=== PATIENT | female | born 1965 | race Caucasian/White ===

== ENCOUNTER → 2020-08-10 18:00 | Outpatient (BNVA) | payer OTHER, SELFPAY | PROVIDERS: Family Provider Registered Nurse; PCP Family Medicine; Visit Provider Family Medicine | DX: Z78.0 Asymptomatic menopausal state (principal); M62.838 Other muscle spasm; Z12.4 Encounter for screening for malignant neoplasm of cervix; L57.0 Actinic keratosis; Z12.39 Encounter for other screening for malignant neoplasm of breast; Z12.31 Encounter for screening mammogram for malignant neoplasm of breast; Z13.1 Encounter for screening for diabetes mellitus; Z13.220 Encounter for screening for lipoid disorders; Z13.6 Encounter for screening for cardiovascular disorders; Z68.29 Body mass index [BMI] 29.0-29.9, adult; Z86.39 Personal history of other endocrine, nutritional and metabolic disease | CPT/HCPCS: 88175 ==

== ENCOUNTER 2020-08-16 19:54 | Emergency (ER) | payer OTHER, SELFPAY ==
[2020-08-16 20:06] VITALS: BP 166/93; PULSE 104; RESP 14; TEMP 36.8; O2SAT 97; BMI 28.7
--- NOTE | 2020-08-16 20:18 | ECG_ITS ---
[facility] Test Date: 2020-08-16 Pat Name: Naheed Acosta Department: Room: Gender: Female Resident Medical Officer: TANIYA BRUSHB: 1965 Requested By: Rema Canales Order Number: [id number] Griselda MD: Leon Eller M.D. Measurements Intervals [place] Rate: 104 P: 64 KS: 150 QRS: 56 QRSD: 86 T: 64 QT: 326 QTc: 429 Interpretive Statements SINUS TACHYCARDIA POSSIBLE LEFT ATRIAL ENLARGEMENT [-0.1mV P WAVE IN V1/V2] POSSIBLE LEFT VENTRICULAR HYPERTROPHY [VOLTAGE CRITERIA PLUS LAE OR QRS WIDENING] MODERATE ST DEPRESSION [0.05+ mV ST DEPRESSION] No previous ECG available for comparison Electronically Signed On 08-17-2020 19:59:30 PRODUCE SPECIALIST by Leon Eller M.D. [id number]
--- NOTE | 2020-08-16 20:18 | XR_ITS ---
WS: [id number] PORTABLE CHEST HISTORY: cp COMPARISON: None available. Lungs are clear and well expanded. No pleural effusion or pneumothorax. Cardiac size: Normal. Mediastinum/Aorta: Normal mediastinum. No osseous abnormality seen. XR/XR chest 1V portable [id number] IMPRESSION: Unremarkable portable chest.
--- NOTE | 2020-08-16 20:41 | W.ED.CHESTPA ---
HPI - Chest Pain General: Chief Complaint: Chest Pain Stated Complaint: cp Time Seen by Provider: 08/16/20 20:17 Source: patient Mode of arrival: ambulatory Limitations: no limitations History of Present Illness: HPI narrative: 55-year-old female states patient has been having chest pain started roughly 2 hours ago. States pressure type pain in the center of her chest and radiates to her left arm and jaw. She had some nausea and shortness of breath with it. She has no history of cardiac issues. She denies any history of high blood pressure. Denies any worsening improving factors. MD complaint: chest pain Associated symptoms: Deny abdominal pain, dyspnea, fever(s), nausea or vomiting Review of Systems Const: Denies: fever(s), chills, body aches or change in appetite Eyes: Denies: blurry vision or eye discomfort ENMT: Denies: throat pain or dental pain Card: Reports: chest pain Resp: Denies: dyspnea GI: Denies: abdominal pain, nausea, vomiting or diarrhea : Denies: dysuria Musc: Denies: neck pain or back pain Skin/Breast: Denies: rash Neuro: Denies: headache(s) Psych: Denies: depression Giles/Lymph: Denies: easy bruising All/Imm: Denies: urticaria PFSH ED PFSH: Medical History Post-menopausal Surgical History H/O breast augmentation H/O tubal ligation History of right-sided carotid endarterectomy Social History Smoking and tobacco status: never smoked Alcohol intake: never Female Reproductive History: Spontaneous abortions: No Physical Exam Const: COMMON NORMALS: no acute distress, patient oriented x3 and healthy appearing HENMT: COMMON NORMALS: normocephalic and atraumatic HEAD & SCALP: normocephalic and atraumatic Eye: COMMON NORMALS: Equal, round and reactive pupils present and EOMs intact bilaterally PUPIL: Yes Equal, round and reactive pupils present Neck/C-Spine: COMMON NORMALS: full ROM and supple Chest: COMMONS NORMALS: normal inspection of the chest and normal palpation of entire chest wall Resp: COMMON NORMALS: normal respiratory effort, No retractions, No use of accessory muscles and clear to auscultation bilaterally AUSCULTATION: clear to auscultation bilaterally Cardio: COMMON NORMALS: regular rate, regular rhythm and No murmurs present (Cardio) RATE: regular rate RHYTHM: regular rhythm GI: COMMON NORMALS: Normal to inspection, nondistended, normoactive bowel sounds present, Soft to palpation, non-tender and no masses PALPATION: Yes Soft to palpation Extremity: COMMON NORMALS: normal to inspection and full ROM Neuro: COMMON NORMALS: patient oriented x3, moves all extremities and no focal motor deficits Psych: COMMON NORMALS: mental status grossly normal, Normal thought process present and cooperative THOUGHT PROCESS: Normal thought process present Skin: COMMON NORMALS: no rashes or lesions noted and no wounds GENERAL SKIN EXAM: no rashes or lesions noted Course Vital Signs: Vital signs: Vital Signs Temperature 98.2 F 08/16/20 22:33 Pulse Rate 90 08/16/20 22:33 Respiratory Rate 24 H 08/16/20 22:33 Blood Pressure 137/80 08/16/20 22:33 Pulse Oximetry 95 08/16/20 22:33 MDM - Chest Pain MDM Narrative: Medical decision making narrative: Tomorrow presents with chest pain. Her chest pain is since resolved. Her troponin here is negative. Patient was demanding to leave. I went and informed her that I would like to check a 2-hour troponin and her D-dimer is not back. She states she has to work tomorrow and refuses any more blood work and has to go home at this moment. I tried to talk her into staying and she refused. She is to return if she has pain. She is to follow-up with her PCP. She understands agrees to plan. Lab Data: Labs: Lab Results 08/16/20 08/16/20 08/16/20 Range/Units 20:29 20:29 20:29 WBC 6.5 (4.0-10.0) 10^3/ uL RBC 4.62 (4.1-5.3) 10^6/u L Hgb 14.9 (11.5-15.3) g/dL Hct 45.0 (37.0-47.0) % MCV 97.4 (81-99) fL MCH 32.3 (28.0-34.0) pg MCHC 33.1 (30.0-36.0) g/dL RDW 12.5 (12.1-15.1) % Plt Count 190 (130-400) 10^3/c mm MPV 12.5 H (7.4-10.4) fL Neut % (Auto) 56.9 % Lymph % (Auto) 31.0 % [place] % (Auto) 9.3 % Eos % (Auto) 1.4 % Baso % (Auto) 0.9 % Neut # (Auto) 3.68 (1.8-7.7) 10^3/u L Lymph # (Auto) 2.0 (0.8-4.8) 10^3/u L [place] # (Auto) 0.6 (0.2-0.9) 10^3/u L Eos # (Auto) 0.1 (0.0-0.8) 10^3/u L Baso # (Auto) 0.1 (0.0-0.1) 10^3/u L Nucleated RBC % (a uto) 0 % Nucleated RBCs # 0.0 /100WBC PT 12.30 (12.1-14.9) SECO NDS INR 0.89 (0.8-1.2) Sodium 142 (136-145) mmol/L Potassium 4.0 (3.5-5.1) mmol/L Chloride 105 (98-107) mmol/L Carbon Dioxide 25 (22-29) mmol/L Anion Gap 16.0 (5-19) BUN 10 (6-20) mg/dL Creatinine 0.6 (0.5-0.9) mg/dL GFR Calculation 104.2 (90-130) mL/min Glucose 106 (65-115) mg/dL Calculated Osmolal ity 293 (285-295) mOsm/k g Calcium 9.2 (8.5-10.5) mg/dL Total Bilirubin 0.2 (0.15-1.2) mg/dL AST 17 (0-32) U/L ALT 13 (0-33) U/L Alkaline Phosphata se 92 (35-105) IU/L Troponin T Baselin e (0-10) ng/L NT-Pro-B Natriuret Pep 29 (0-125) pg/mL Total Protein 6.3 L (6.6-8.7) g/dL Albumin 4.2 (3.5-5.2) g/dL Globulin 2.1 (1.3-4.6) g/dL Digoxin (0.6-1.2) ng/mL 08/16/20 08/16/20 Range/Units 20:29 20:38 WBC (4.0-10.0) 10^3/ uL RBC (4.1-5.3) 10^6/u L Hgb (11.5-15.3) g/dL Hct (37.0-47.0) % MCV (81-99) fL MCH (28.0-34.0) pg MCHC (30.0-36.0) g/dL RDW (12.1-15.1) % Plt Count (130-400) 10^3/c mm MPV (7.4-10.4) fL Neut % (Auto) % Lymph % (Auto) % [place] % (Auto) % Eos % (Auto) % Baso % (Auto) % Neut # (Auto) (1.8-7.7) 10^3/u L Lymph # (Auto) (0.8-4.8) 10^3/u L [place] # (Auto) (0.2-0.9) 10^3/u L Eos # (Auto) (0.0-0.8) 10^3/u L Baso # (Auto) (0.0-0.1) 10^3/u L Nucleated RBC % (a uto) % Nucleated RBCs # /100WBC PT (12.1-14.9) SECO NDS INR (0.8-1.2) Sodium (136-145) mmol/L Potassium (3.5-5.1) mmol/L Chloride (98-107) mmol/L Carbon Dioxide (22-29) mmol/L Anion Gap (5-19) BUN (6-20) mg/dL Creatinine (0.5-0.9) mg/dL GFR Calculation (90-130) mL/min Glucose (65-115) mg/dL Calculated Osmolal ity (285-295) mOsm/k g Calcium (8.5-10.5) mg/dL Total Bilirubin (0.15-1.2) mg/dL AST (0-32) U/L ALT (0-33) U/L Alkaline Phosphata se (35-105) IU/L Troponin T Baselin e 6 (0-10) ng/L NT-Pro-B Natriuret Pep (0-125) pg/mL Total Protein (6.6-8.7) g/dL Albumin (3.5-5.2) g/dL Globulin (1.3-4.6) g/dL Digoxin 0.3 L (0.6-1.2) ng/mL Imaging Data^: CXR: Attestation: I personally reviewed and interpreted this imaging study as follows: My impression: no acute abnormality EKG Data^: EKG 1: Attestation: I personally reviewed and interpreted this EKG as follows: EKG interpretation date: 08/16/20 EKG interpretation time: 20:02 Interpretation: sinus tach hr [address] or t wave abnormalities qrs 86 qtc 386 Discharge Plan Discharge Patient Disposition: Home Clinical Impression: Chest pain Qualifiers: Chest pain type: unspecified Qualified Code(s): R07.9 - Chest pain, unspecified Condition: Stable Prescriptions: No Action Zyrtec 10 mg Tablet 10 mg PO DAILY@1999 RF: 0 Aspir-81 81 mg Tablet,Delayed Release (Dr/Ec) 81 mg PO DAILY@1999 RF: 0 Prilosec OTC 20 mg Tablet,Delayed Release (Dr/Ec) 20 mg PO DAILY@1999 RF: 0 cyclobenzaprine 10 mg tablet 10 mg PO TID PRN (Reason: muscle spasm) RF: 0 medroxyprogesterone 2.5 mg tablet 2.5 mg PO DAILY@1999 RF: 0 estradiol 1 mg tablet 1 mg PO DAILY@1999 RF: 0 Discharge Orders: Discharge ED (Routine); Ordered 08/16/20 Ordered By: Rema Canales Discharge Diet: Advance as tolerated Discharge Activity: Resume usual activity Patient Instructions: Chest Pain (ED) Coding Level of Care Code ED Passenger Car Conductor for Chg Fwd Exam Comprehensive
[2020-08-16 20:43] LABS: Basophils # 0.1 10^3/uL (0.0-0.1); Basophils % 0.9 %; Eosinophils # 0.1 10^3/uL (0.0-0.8); Eosinophils % 1.4 %; Hemoglobin 14.9 g/dL (11.5-15.3); Mean Corpuscular HGB Conc 33.1 g/dL (30.0-36.0); Mean Corpuscular Hemoglobin 32.3 pg (28.0-34.0); Mean Corpuscular Volume 97.4 fL (81-99); Mean Platelet Volume 12.5 fL (7.4-10.4); Monocytes # 0.6 10^3/uL (0.2-0.9); Monocytes % 9.3 %; Neutrophils # 3.68 10^3/uL (1.8-7.7); Neutrophils % 56.9 %; Nucleated Red Blood Cells % 0 %; Platelet Count 190 10^3/cmm (130-400); Red Blood Count 4.62 10^6/uL (4.1-5.3); Red Cell Distribution Width 12.5 % (12.1-15.1); White Blood Count 6.5 10^3/uL (4.0-10.0)
[2020-08-16] MEDS: aspirin 81 mg Chew Tablet 324 MG PO (20:49)
[2020-08-16] MEDS: nitroglycerin 0.4 mg sublingual Tablet SUBLINGUAL (20:49)
[2020-08-16 21:08] LABS: INR 0.89 (0.8-1.2)
[2020-08-16 21:30] LABS: Digoxin 0.3 ng/mL (0.6-1.2)
[2020-08-16 21:34] LABS: Troponin(5th) Baseline 6 ng/L (0-10)
[2020-08-16 21:42] LABS: Alanine Aminotransferase 13 U/L (0-33); Albumin Level 4.2 g/dL (3.5-5.2); Alkaline Phosphatase 92 IU/L (35-105); Aspartate Amino Transferase 17 U/L (0-32); Blood Urea Nitrogen 10 mg/dL (6-20); Calcium 9.2 mg/dL (8.5-10.5); Carbon Dioxide 25 mmol/L (22-29); Chloride 105 mmol/L (98-107); Globulin 2.1 g/dL (1.3-4.6); Glomerular Filtration Rate 104.2 mL/min (90-130); Glucose 106 mg/dL (65-115); NT Pro B Type Natriuretic Pept 29 pg/mL (0-125); Osmolality Calculated 293 mOsm/kg (285-295); Sodium 142 mmol/L (136-145); Total Bilirubin 0.2 mg/dL (0.15-1.2); Total Protein 6.3 g/dL (6.6-8.7)
[2020-08-16 22:06] VITALS: BP 138/83; PULSE 90; RESP 25; O2SAT 96
[2020-08-16 22:33] VITALS: BP 137/80; PULSE 90; RESP 24; TEMP 36.8; O2SAT 95
[2020-08-16 23:49] LABS: D Dimer <= 0.27 ug/mIFEU (0-0.59)
== END 2020-08-16 22:33 | disposition home or self-care (01) ==
PROVIDERS: Emergency Provider Emergency Medicine
DX: R07.9 Chest pain, unspecified (principal); Z79.82 Long term (current) use of aspirin
CPT/HCPCS: 12345; 71045; 80053; 80162; 83880; 84484; 85025; 85378; 85610; 93005; 99283; 99284

== ENCOUNTER 2020-10-04 10:04 | Outpatient (CLI) | payer SELFPAY ==
[2020-10-04 10:57] LABS: Thyroid Stimulating Hormone 1.39 uIU/mL (0.27-4.20)
== END 2020-10-04 10:05 | disposition home or self-care (01) ==
LOC: LAB 10:08
PROVIDERS: PCP Family Medicine; Visit Provider Dermatology
DX: Z01.89 Encounter for other specified special examinations (principal)
CPT/HCPCS: 84443

== ENCOUNTER 2020-11-08 08:18 | Outpatient (CLI) | payer OTHER, SELFPAY ==
--- NOTE | 2020-11-08 08:29 | MM_ITS ---
WS: [id number] Exam: [id number] Date/Time of Exam: 11/08/2020 8:34 AM Reason For Exam: SCREENING VIEWS: MLO and CC views both breasts. Also breast implant displacement MLO and CC views both breasts . Comparison made with prior exam of 11/18/2014, 12/06/2015, 12/06/2016 and 12/12/2017.. Findings: There was no sign of mass, architectural distortion or suspicious calcification in either breast. Sc attered fibroglandular densities MM/[id number] Impression: BI-RADS: 2-Benign FOLLOW-UP: 1 Year Follow-up This mammogram was also analyzed by the Computer Aided Detection System R2 Imag e Zigzag Tunnel Elastic Operator.
== END 2020-11-08 08:19 | disposition home or self-care (01) ==
LOC: RADSHAW 08:19
PROVIDERS: PCP Family Medicine; Visit Provider Family Medicine
DX: Z12.31 Encounter for screening mammogram for malignant neoplasm of breast (principal)
CPT/HCPCS: 77067

== ENCOUNTER 2020-12-29 06:46 | Outpatient (CLI) | payer OTHER, SELFPAY ==
--- NOTE | 2020-12-29 07:28 | USCV_ITS ---
Naheed Acosta Age: 55 Gender: F : 1965 Exam Date: 12/29/2020 07:38 Ordering Phys: bIeth Hanson MD ([email or web address]) Technologist: Beverley Godoy Exam Location: [facility] [place] Indication: Tachycardia BP: 100 / 65 HR: 69 Rhythm: Sinus Technical Quality: Fair MEASUREMENTS (Male / Female) Normal Values 2D ECHO LV Diastolic Diameter PLAX 4.6 cm 4.2 - 5.9 / 3.9 - 5.3 cm LV Systolic Diameter PLAX 3.3 cm LV Chamber Size 4.2 cm IVS Diastolic Thickness 1.3 cm 0.6 - 1.0 / 0.6 - 0.9 cm IVS Systolic Thickness 1.3 cm LVPW Diastolic Thickness 1.3 cm 0.6 - 1.0 / 0.6 - 0.9 cm LVPW Systolic Thickness 1.8 cm RV Chamber Size 2.9 cm LVOT Diameter 2.0 cm LV Ejection Fraction 2D Teich 54.4 % LV Ejection Fraction MOD 2C 57.8 % LV Ejection Fraction 2C AL 60.2 % LA Diameter 2.8 cm LA Width 2.5 cm LA Height 4.6 cm RA Width 2.9 cm RA Height 4.1 cm Aorta at Sinotubular Diameter 2.4 cm M-MODE LV Diastolic Diameter MM 6.1 cm 4.2 - 5.9 / 3.9 - 5.3 cm LV Systolic Diameter MM 4.2 cm LV Ejection Fraction MM Teich 59.0 % IVS Diastolic Thickness MM 0.7 cm 0.6 - 1.0 / 0.6 - 0.9 cm IVS Systolic Thickness MM 1.1 cm LVPW Diastolic Thickness MM 1.1 cm 0.6 - 1.0 / 0.6 - 0.9 cm LVPW Systolic Thickness MM 1.3 cm RV Diastolic Diameter MM 0.6 cm Aortic Annulus Diameter 3.0 cm LA Ao Ratio MM 1.2 MV E Point Septal Separation 0.6 cm DOPPLER AV Peak Velocity 127.0 cm/s LVOT Peak Velocity 100.0 cm/s AV Area Cont Eq vti 2.6 cm squared AV Area Cont Eq pk 2.4 cm squared MV Area PHT 3.1 cm squared Mitral E to A Ratio 0.8 MV E' Velocity 39.0 cm/s Mitral E to MV E' Ratio 4.6 Mitral E to LV E' Lateral Ratio 4.5 Mitral E to LV E' Septal Ratio 4.9 TR Peak Velocity 141.0 cm/s TR Peak Gradient 8.0 mmHg TV Peak E Velocity 40.0 cm/s Right Atrial Pressure 3.0 mmHg Pulmonary Artery Systolic Pressu 11.0 mmHg PV Peak Velocity 77.0 cm/s RV Acceleration Time 0.1 s RV Ejection Time 0.3 s RV AcT/ET 0.4 FINDINGS Left Ventricle Normal left ventricular size, systolic function and wall thickness, with no regional wall motion abnormalities. Left ventricular ejection fraction is estimated at 60 %. Normal diastolic function. Right Ventricle Normal right ventricular size and systolic function. Right ventricular systolic pressure 11 mmHg. Right Atrium Normal right atrial size. Left Atrium Normal left atrial size. Mitral Valve Structurally normal mitral valve. No mitral valve stenosis. No mitral valve regurgitation. Aortic Valve Structurally normal trileaflet aortic valve. No aortic valve stenosis. No aortic valve regurgitation. Tricuspid Valve Structurally normal tricuspid valve. Trace to mild tricuspid valve regurgitation. Pulmonic Valve Pulmonic valve not well visualized. No pulmonary valve stenosis. Trace pulmonary valve regurgitation. Pericardium No pericardial effusion. Aorta Normal size aortic root. CONCLUSIONS 1. Normal left ventricular size, systolic function and wall thickness, with no regional wall motion abnormalities. Left ventricular ejection fraction is estimated at 60 %. Normal diastolic function. 2. Normal right ventricular size and systolic function. 3. No significant valvular abnormality. 4. No pericardial effusion. 5. No prior similar studies to compare. Ibeth Hanson MD (Electronically Signed) Final Date: 01 January 2021 14:26 S
== END 2020-12-29 06:47 | disposition home or self-care (01) ==
PROVIDERS: PCP Family Medicine; Visit Provider Internal Medicine Cardiovascular Disease
DX: R00.0 Tachycardia, unspecified (principal)
CPT/HCPCS: 93306

== ENCOUNTER 2020-12-31 23:19 | Emergency (ER) | payer OTHER, SELFPAY ==
[2020-12-31 23:36] VITALS: BP 145/75; PULSE 75; RESP 16; TEMP 36.9; O2SAT 96; BMI 30.1
--- NOTE | 2020-12-31 23:55 | XRR_ITS ---
PROCEDURE INFORMATION: Exam: XR Chest Exam date and time: 12/31/2020 11:55 PM Age: 55 years old Clinical indication: Sternal or substernal pain; Additional info: Cp TECHNIQUE: Imaging protocol: XR of the chest. Views: 1 view. COMPARISON: CR XR chest 1V portable [id number] 08/16/2020 8:26 PM FINDINGS: Lungs: Mild left basilar pneumonia. Pleural spaces: Unremarkable. No pleural effusion. No pneumothorax. Heart/Mediastinum: Unremarkable. No cardiomegaly. Bones/joints: Unremarkable. XR/XR chest 1V portable [id number] IMPRESSION: Mild left basilar pneumonia.
[2021-01-01 00:11] VITALS: BP 118/74; PULSE 72; RESP 22; O2SAT 93
[2021-01-01 00:41] VITALS: BP 115/61; PULSE 71; RESP 22; O2SAT 96
[2021-01-01 00:45] LABS: Basophils # 0.1 10^3/uL (0.0-0.1); Basophils % 0.8 %; Eosinophils % 0.5 %; Hematocrit 42.5 % (37.0-47.0); Hemoglobin 14.1 g/dL (11.5-15.3); Lymphocytes # 1.6 10^3/uL (0.8-4.8); Lymphocytes % 22.4 %; Mean Corpuscular HGB Conc 33.2 g/dL (30.0-36.0); Mean Corpuscular Hemoglobin 31.3 pg (28.0-34.0); Mean Corpuscular Volume 94.4 fL (81-99); Mean Platelet Volume 12.3 fL (7.4-10.4); Monocytes # 0.7 10^3/uL (0.2-0.9); Monocytes % 8.9 %; Neutrophils # 4.87 10^3/uL (1.8-7.7); Nucleated Red Blood Cells % 0 %; Platelet Count 195 10^3/cmm (130-400); White Blood Count 7.3 10^3/uL (4.0-10.0)
[2021-01-01 01:09] LABS: Troponin(5th) Baseline 7 ng/L (0-10)
[2021-01-01 01:11] VITALS: BP 113/82; RESP 69; O2SAT 95
[2021-01-01 01:16] LABS: Alanine Aminotransferase 9 U/L (0-33); Alkaline Phosphatase 63 IU/L (35-105); Aspartate Amino Transferase 10 U/L (0-32); Blood Urea Nitrogen 16 mg/dL (6-20); Calcium 8.8 mg/dL (8.5-10.5); Carbon Dioxide 23 mmol/L (22-29); Chloride 108 mmol/L (98-107); Creatine Phosphokinase 35 U/L (26-192); Globulin 1.9 g/dL (1.3-4.6); Glomerular Filtration Rate 128.6 mL/min (90-130); Glucose 98 mg/dL (65-115); NT Pro B Type Natriuretic Pept 96 pg/mL (0-125); Osmolality Calculated 295 mOsm/kg (285-295); Sodium 142 mmol/L (136-145); Total Bilirubin 0.2 mg/dL (0.15-1.2); Total Protein 5.9 g/dL (6.6-8.7)
[2021-01-01 01:41] VITALS: BP 119/75; PULSE 77; RESP 15; O2SAT 96
[2021-01-01] MEDS: ketorolac 30 mg/mL INJ IVP (01:55)
--- NOTE | 2021-01-01 01:55 | ECG_ITS ---
[facility] Test Date: 2021-01-01 Pat Name: Naheed Acosta Department: Room: Gender: Female Manager Center: : 1965 Requested By: Osbaldo Berg Order Number: [id number] Griselda MD: Leon Eller M.D. Measurements Intervals [place] Rate: 65 P: 59 MT: 153 QRS: 56 QRSD: 90 T: 54 QT: 403 QTc: 419 Interpretive Statements SINUS RHYTHM Compared to ECG 08/16/2020 20:02:42 Sinus tachycardia no longer present ST (T wave) deviation no longer present Electronically Signed On 01-01-2021 19:16:24 CDT by Leon Eller M.D. [id number]
[2021-01-01 02:28] VITALS: BP 143/87; PULSE 73; RESP 18; O2SAT 98
--- NOTE | 2021-01-01 02:43 | ED_ITS ---
HPI - Arrhythmia/Palpitations General: Chief Complaint: Arrhythmia/Palpitations Stated Complaint: CP, NAUSEATED Time Seen by Provider: 12/31/20 23:49 History of Present Illness: HPI narrative: 55-year-old female presents with chest discomfort and palpitations. She has had these symptoms before. She has had a Holter monitor, and sustained 2 short runs of ventricular tachycardia that were nonsustained during her Holter monitor. She also has had a history of several symptomatic episodes of PVCs. She states that she has had more of these tonight, with chest discomfort not resolved by nitroglycerin and aspirin at home. She later noted that she had been coughing, nonproductive MD complaint: rapid heart beat, heart racing and palpitations Onset (ago): hour(s) Duration: intermittent Severity: moderate Context: occurred during rest and occurred during exertion Arrhythmia history: other Associated symptoms: Reports cough, nausea, sense of impending doom and short of breath; Deny anxiety, diaphoresis, paresthesias, syncope or vomiting Review of Systems Const: Denies: diaphoresis Eyes: Denies: change in vision ENMT: Denies: odynophagia or sinus pain Card: Denies: syncope Resp: Reports: dyspnea and non-productive cough; Denies: productive cough or wheezing GI: Reports: nausea; Denies: vomiting : Denies: dysuria or hematuria Musc: Denies: joint redness Skin/Breast: Denies: rash or erythema Neuro: Reports: dizziness; Denies: headache(s) or seizure-like activity Psych: Denies: anxiety PFSH ED PFSH: Medical History Post-menopausal Surgical History H/O breast augmentation H/O tubal ligation History of right-sided carotid endarterectomy Social History Smoking and tobacco status: never smoked Alcohol intake: never Female Reproductive History: Spontaneous abortions: No Physical Exam Const: GENERAL APPEARANCE: well developed ORIENTATION/CONSCIOUSNESS: Yes oriented to person, Yes oriented to place and Yes oriented to time HENMT: COMMON NORMALS: normocephalic and Normal external nose present HEAD & SCALP: normocephalic FACE & SINUS: normal facial exam NOSE: Normal external nose present and No nasal discharge present Eye: COMMON NORMALS: Equal, round and reactive pupils present, EOMs intact bilaterally and conjunctivae normal EYELID: eyelids normal CONJUNCTIVA: Yes conjunctivae normal PUPIL: Yes Equal, round and reactive pupils present Neck/C-Spine: GENERAL: No tracheal deviation CERVICAL SPINE: Yes normal cervical lordosis and No Cervical spine tenderness Chest: COMMONS NORMALS: normal inspection of the chest CHEST: No tenderness Resp: COMMON NORMALS: clear to auscultation bilaterally EFFORT & INSPECTION: No tachypneic, No respiratory distress, No retractions, No uses accessory muscles and No tracheal deviation AUSCULTATION: clear to auscultation bilaterally, no rhonchi, no wheezes and lung sounds not diminished Cardio: COMMON NORMALS: regular rate and regular rhythm RATE: regular rate RHYTHM: regular rhythm HEART SOUNDS: no murmurs PERIPHERAL PULSES: radial pulses present GI: INSPECTION: No abdominal distension AUSCULTATION: No Hyperactive bowel sounds present and No Hypoactive bowel sounds present PALPATION: No Guarding due to palpation present (GI) and No Rigid due to palpation PERCUSSION: no dullness to percussion and no tympanic to percussion Neuro: SENSORIUM/ORIENTATION: Yes oriented to person, Yes oriented to place and Yes oriented to time Psych: COMMON NORMALS: mental status grossly normal Skin: COMMON NORMALS: no rashes or lesions noted GENERAL SKIN EXAM: no rashes or lesions noted Course Vital Signs: Vital signs: Vital Signs Temperature 98.4 F 12/31/20 23:36 Pulse Rate 73 01/01/21 02:28 Respiratory Rate 18 01/01/21 02:28 Blood Pressure 143/87 01/01/21 02:28 Pulse Oximetry 98 01/01/21 02:28 MDM - Arrhythmia/Palpitations MDM Narrative: Medical decision making narrative: 55-year-old female with chest discomfort and palpitations. Her EKG shows normal sinus rhythm without any acute ST changes. There is a normal axis. Her troponin is 6. Other laboratory including magnesium is normal. Chest x-ray shows a left basilar pne umonia, mild, but could be a cause of her symptoms. We will go ahead and treat her. She does state that she has been coughing. She will be swabbed for COVID- 19 as well. Lab Data: Labs: Lab Results 01/01/21 01/01/21 01/01/21 Range/Units 00:15 00:15 00:15 WBC 7.3 (4.0-10.0) 10^3/ uL RBC 4.50 (4.1-5.3) 10^6/u L Hgb 14.1 (11.5-15.3) g/dL Hct 42.5 (37.0-47.0) % MCV 94.4 (81-99) fL MCH 31.3 (28.0-34.0) pg MCHC 33.2 (30.0-36.0) g/dL RDW 12.0 L (12.1-15.1) % Plt Count 195 (130-400) 10^3/c mm MPV 12.3 H (7.4-10.4) fL Neut % (Auto) 67.0 % Lymph % (Auto) 22.4 % Stanton % (Auto) 8.9 % Eos % (Auto) 0.5 % Baso % (Auto) 0.8 % Neut # (Auto) 4.87 (1.8-7.7) 10^3/u L Lymph # (Auto) 1.6 (0.8-4.8) 10^3/u L Stanton # (Auto) 0.7 (0.2-0.9) 10^3/u L Eos # (Auto) 0.0 (0.0-0.8) 10^3/u L Baso # (Auto) 0.1 (0.0-0.1) 10^3/u L Nucleated RBC % (a uto) 0 % Nucleated RBCs # 0.0 /100WBC Sodium 142 (136-145) mmol/L Potassium 4.0 (3.5-5.1) mmol/L Chloride 108 H (98-107) mmol/L Carbon Dioxide 23 (22-29) mmol/L Anion Gap 15.0 (5-19) BUN 16 (6-20) mg/dL Creatinine 0.5 (0.5-0.9) mg/dL GFR Calculation 128.6 (90-130) mL/min Glucose 98 (65-115) mg/dL Calculated Osmolal ity 295 (285-295) mOsm/k g Calcium 8.8 (8.5-10.5) mg/dL Magnesium 2.0 (1.7-2.3) mg/dL Total Bilirubin 0.2 (0.15-1.2) mg/dL AST 10 (0-32) U/L ALT 9 (0-33) U/L Alkaline Phosphata se 63 (35-105) IU/L Creatine Kinase 35 (26-192) U/L Troponin T Baselin e 7 (0-10) ng/L NT-Pro-B Natriuret Pep 96 (0-125) pg/mL Total Protein 5.9 L (6.6-8.7) g/dL Albumin 4.0 (3.5-5.2) g/dL Globulin 1.9 (1.3-4.6) g/dL Discharge Plan Discharge Patient Disposition: Home Clinical Impression: Chest pain Qualifiers: Chest pain type: unspecified Qualified Code(s): R07.9 - Chest pain, unspecified Pneumonia Qualifiers: Pneumonia type: due to unspecified organism Laterality: left Lung location: lower lobe of lung Qualified Code(s): J18.9 - Pneumonia, unspecified organism Condition: Stable Prescriptions: New doxycycline hyclate 100 mg capsule 100 mg PO BID 7 Days Qty: 14 RF: 0 No Action nitroglycerin 0.4 mg tablet, sublingual 0.4 mg sublingual Q5M PRN (Reason: chest pain) Qty: 25 RF: 0 metoprolol succinate 25 mg tablet extended release 24 hr 25 mg PO DAILY Qty: 90 RF: 1 Aspir-81 81 mg Tablet,Delayed Release (Dr/Ec) 81 mg PO DAILY@1999 RF: 0 cyclobenzaprine 10 mg tablet 10 mg PO TID PRN (Reason: muscle spasm) RF: 0 medroxyprogesterone 2.5 mg tablet 2.5 mg PO DAILY@1999 RF: 0 estradiol 1 mg tablet 1 mg PO DAILY@1999 RF: 0 Discharge Orders: Discharge ED (Routine); Ordered 01/01/21 Ordered By: Osbaldo Duff Referrals: Angelita Ayala MD [Primary Care Provider] - 4-7 days Discharge Diet: Advance as tolerated Discharge Activity: Increase activity as tolerated Activity Restrictions/Additional Instructions: Return for worsening pain despite treatment, syncope or passing out, worsening palpitations or racing heart, any other concerning symptoms. You should stay at home until you hear back from your Covid test to be safe. Coding Level of Care Code ED Rubber Boots And Shoes Repairer for Deyvi Rodas
[2021-01-03 01:18] LABS: Quest SARS-CoV-2 RNA NOT DETECTED (NOT DETECTED)
--- NOTE | 2021-01-03 08:52 | PC.NURSE ---
PT CALLED AND GIVEN THE RESULTS OF HER COVID TEST
== END 2021-01-01 02:20 | disposition home or self-care (01) ==
PROVIDERS: Emergency Provider Emergency Medicine; PCP Family Medicine
DX: R07.9 Chest pain, unspecified (principal); J18.9 Pneumonia, unspecified organism; Z79.82 Long term (current) use of aspirin; Z20.822 Contact with and (suspected) exposure to COVID-19
CPT/HCPCS: 71045; 80053; 82550; 83735; 83880; 84484; 85025; 87635; 93005; 96374; 99284; J1885

== ENCOUNTER → 2021-02-01 08:37 | Outpatient (BNVA) | payer OTHER, SELFPAY | PROVIDERS: PCP Family Medicine; Visit Provider Family Medicine | DX: Z20.828 Contact with and (suspected) exposure to other viral communicable diseases (principal) | CPT/HCPCS: 87635 ==

== ENCOUNTER 2021-04-19 10:49 | Outpatient (CLI) | payer OTHER, SELFPAY ==
--- NOTE | 2021-04-19 11:00 | USCV_ITS ---
Naheed Acosta Age: 56 Gender: F : 1965 Exam Date: 04/19/2021 11:09 Ordering Phys: Ibeth Hanson MD ([email or web address]) Technologist: Elvira Cook Exam Location: [facility] – [place] Indication: carotid stenosis, s/p rt endarterectomy Risk Factors: none Previous Vascular Surgery: R CEA Right Brachial BP: / Left Brachial BP: / Right Left Velocity (cm/s) Spectral Plaque Velocity (cm/s) Spectral Plaque Syst/Diast Broadening Syst/Diast Broadening 77.20/ 22.10 Prox CCA 72.80 / 25.40 46.30/ 14.30 Mid CCA 49.60 / 17.10 30.90/ 7.20 Distal CCA 64.10 / 22.20 Homo 73.90/ 27.60 Prox ICA 62.40 / 26.50 Homo 81.60/ 37.50 Mid ICA 74.30 / 26.50 101.40/46.30 Distal ICA 95.90 / 38.60 94.80 ECA 69.20 1.31 ICA/CCA 1.32 Antegrade Vertebral Antegrade 48.20/ 14.00 cm/s 48.50/ 17.60 cm/s Tri Subclavian Tri 64.70 131.5 0 FINDINGS Mild to moderate plaques bilaterally at the bifurcations Intimal thickening in the common carotid arteries bilaterally. Antegrade flow in the vertebral arteries bilaterally Normal Doppler flow velocities in the external carotid, vertebral and subclavian arteries bilaterally CONCLUSIONS Mild to moderate plaques bilaterally at the bifurcations with Doppler features consistent with less than 50% stenosis. No significant stenosis in the vertebral, subclavian and external carotid arteries bilaterally. Dr Leon Eller MD [facility] (Electronically Signed) Final Date: 19 April 2021 23:58 S
== END 2021-04-19 10:50 | disposition home or self-care (01) ==
LOC: RAD 10:51
PROVIDERS: PCP Family Medicine; Visit Provider Internal Medicine Cardiovascular Disease
DX: I65.23 Occlusion and stenosis of bilateral carotid arteries (principal)
CPT/HCPCS: 93880

== ENCOUNTER 2021-07-03 09:01 | Outpatient (CLI) | payer OTHER, SELFPAY ==
[2021-07-03 09:07] VITALS: BMI 30.1
--- NOTE | 2021-07-03 09:19 | ECG_ITS ---
[facility] Test Date: 2021-07-03 Pat Name: Naheed Acosta Department: Room: Gender: Female Software Applications Specialist: Juliane Elmore : 1965 Requested By: Ibeth Hanson Order Number: [id number] Villalobos MD: Ibeth Hanson M.D. Interpretive Statements NAME OF STUDY: EXERCISE SESTAMIBI STRESS TEST INDICATION: Exertional dyspnea, NSVT Baseline blood pressure of 150/86 mm Hg, heart rate of 73 beats per minute and oxygen saturation of 94%. EKG showed sinus rhythm, normal axis with with nonspecific ST depression. The patient exercised for 6 minutes and 4 seconds on a standard Luis protocol. Patient attained a maximum heart rate of 154 beats per minute(93% of the maximum predicted heart rate) with a blood pressure at the peak exercise of 183/93 mm Hg and oxygen saturation of 97%. The EKG at the peak exercise revealed sinus tachycardia with no significant ST-T wave changes. Patient did not have any chest pain or any significant arrhythmis with the exercise. Isolated PVCs and PACs noted with exercise and during recovery. Study was terminated due to exertional fatigue and shortness of breath. During the recovery phase, there were no new changes. Blood pressure at the end of the recovery phase was 157/84 mm Hg with a heart rate of 95 beats per minute and oxygen saturation of 95%. CONCLUSION: 1. Normal EKG response to treadmill exercise. 2. No exercise-induced chest pain or cardiac arrhythmia. 3. Good exercise tolerance, attained a maximum of 7 METs. Maximum VO2 of 24.5 mL/kg/min. 4. Baseline hypertension with normal response to exercise. 5. Perfusion scan will be documented separately. Electronically Signed On 07-06-2021 18:10:10 SERVICE OBSERVER CHIEF by Ibeth Hanson M.D. [id number]
--- NOTE | 2021-07-03 09:20 | NMCV_ITS ---
NM radha perf SPECT r/s* [id number] Naheed Acosta Age: 56 Gender: F : 1965 Exam Date: 07/03/2021 10:18 Ordering Phys: Ibeth Hanson MD ([email or web address]) Technologist: ATIF Yu Exam Location: [facility] Indications: Exertional dyspnea, NSVT STRESS TEST Please [facility] IMAGE PROTOCOL Rest/Stress 1 Exercise Day Radiopharmaceutical Dose (mCi) Administration Site Administered by Rest: Tc-99m 10.9 IV ATIF Yu Sestamibi Stress:Tc-99m 32.3 IV ATIF Yu Sestamibi Rest: 03-Jul-2021 60 Discovery 630 Stress: 03-Jul-2021 30 Discovery 630 Images obtained in supine and prone position. Radiopharmaceutical was injected at 90 % maximum heart rate. SPECT RESULTS Technical Quality: Excellent Raw Data Analysis: Normal Image Corrections: No attenuation or motion correction applied Summed Stress Score: 0 Summed Rest Score: 3 Summed Difference Score: 0 PERFUSION FINDINGS Small size perfusion abnormality of mild severity of apical inferior and apical lateral wall on rest images with somewhat improved tracer uptake in stress images. FUNCTIONAL RESULTS (calculated via Gated SPECT) Stress Image LV EF (%): 72 Stress EDV (mL):79 TID: 0.85 Stress ESV (mL):22 FUNCTIONAL FINDINGS: The left ventricle is normal in size. Transient Ischemia Dilatation of 0.85. There is normal left ventricular systolic function. The left ventricular ejection fraction is normal with a value of 72%. There is normal left ventricular wall thickening with no regional wall motion abnormality. Normal end-diastolic end-systolic volumes. IMPRESSIONS 1. Small sized perfusion abnormality of mild severity of apical inferior and apical lateral arnold. 2. This may represent attenuation artifact or old myocardial infarction in apical arnold. 3. Overall left ventricular systolic function is normal without regional wall motion abnormalities, LVEF=72%. 4. Normal EKG response to treadmill exercise. Please refer to separate report for details. 5. No coronary ischemia based on the study. Ibeth Hanson MD (Electronically Signed) Final Date: 06 July 2021 18:25 S
[2021-07-03 11:45] VITALS: BP 157/84; PULSE 96
== END 2021-07-03 09:02 | disposition home or self-care (01) ==
LOC: CDL 09:02
PROVIDERS: PCP Family Medicine; Visit Provider Internal Medicine Cardiovascular Disease
DX: I47.2 Ventricular tachycardia (principal); R06.09 Other forms of dyspnea; R53.83 Other fatigue; R06.02 Shortness of breath
CPT/HCPCS: 78452; 93017; A9500

== ENCOUNTER 2022-03-27 09:01 | Outpatient (CLI) | payer SELFPAY ==
[2022-03-27 09:18] LABS: HF Add Manual Diff No
[2022-03-27 09:20] LABS: Basophils % 0.7 %; Eosinophils % 0.2 %; Hematocrit 42.7 % (37.0-47.0); Hemoglobin 14.3 g/dL (11.5-15.3); Lymphocytes # 1.9 10^3/uL (0.8-4.8); Lymphocytes % 30.7 %; Mean Corpuscular HGB Conc 33.5 g/dL (30.0-36.0); Mean Corpuscular Hemoglobin 32.6 pg (28.0-34.0); Mean Corpuscular Volume 97.5 fl (81-99); Mean Platelet Volume 11.4 fL (7.4-10.4); Monocytes # 0.4 10^3/uL (0.2-0.9); Monocytes % 6.9 %; Neutrophils % 61.2 %; Nucleated Red Blood Cells % 0 %; Platelet Count 191 10^3/cmm (130-400); Red Blood Count 4.38 10^6/uL (4.1-5.3); Red Cell Distribution Width 11.7 % (12.1-15.1); White Blood Count 6.1 10^3/uL (4.0-10.0)
[2022-03-27 09:49] LABS: Estmated Average Glucose 100; Hemoglobin A1C 5.1 % (4.0-6.0)
[2022-03-27 09:55] LABS: Alanine Aminotransferase 12 U/L (0-33); Alkaline Phosphatase 55 U/L (35-105); Blood Urea Nitrogen 9 mg/dL (6-20); Calcium 9.2 mg/dL (8.5-10.5); Carbon Dioxide 25 mmol/L (22-29); Chloride 104 mmol/L (98-107); Chol HDL Ratio 2.72 mg/dL (0.0-4.40); Cholesterol 196 mg/dL (0-200); Globulin 2.6 g/dL (1.3-4.6); Glomerular Filtration Rate 103.4 mL/min (90-130); Glucose 94 mg/dL (65-115); HDL Cholesterol 72 mg/dL (60-100); LDL Cholesterol Calculated 99 mg/dL (50-129); LDL HDL Ratio 1.38 RATIO (0.00-3.22); Osmolality Calculated 288 mOsm/kg (285-295); Sodium 140 mmol/L (136-145); Thyroid Stimulating Hormone 0.85 uIU/mL (0.27-4.20); Total Bilirubin 0.3 mg/dL (0.15-1.2); Total Protein 6.6 g/dL (6.6-8.7); Triglycerides 125 mg/dL (0-150)
[2022-03-27 10:34] LABS: Anion Gap 15.3 (5-19); Potassium 4.3 mmol/L (3.5-5.1)
[2022-03-27 10:35] LABS: Aspartate Amino Transferase 16 U/L (0-32)
== END 2022-03-27 09:02 | disposition home or self-care (01) ==
PROVIDERS: PCP Family Medicine; Visit Provider Dermatology
DX: Z01.89 Encounter for other specified special examinations (principal)

== ENCOUNTER 2022-04-06 07:52 | Outpatient (CLI) | payer OTHER, SELFPAY ==
--- NOTE | 2022-04-06 08:07 | MM_ITS ---
WS: [id number] BILATERAL SCREENING DIGITAL BREAST MAMMOGRAPHY WITH JARROD DISPLACEMENT VIEWS. CAD PERFORMED. HISTORY: Screening. COMPARISON: 11/08/2020 and 12/12/2017 Bilateral craniocaudal and mediolateral oblique views are performed with tomosynthesis and SM. Jarrod displacement views in CC and MLO projection also performed. Breasts composition: There are scattered areas of fibroglandular density. Implants are intact. No extravasation or collapse of the implants. No suspicious mass. Benign calcifi cations within each breast. MM/[place] [id number] IMPRESSION: BI-RADS: 2-Benign FOLLOW-UP: 1 Year Follow-up
== END 2022-04-06 07:53 | disposition home or self-care (01) ==
PROVIDERS: PCP Family Medicine; Visit Provider Family Medicine
DX: Z12.31 Encounter for screening mammogram for malignant neoplasm of breast (principal)
CPT/HCPCS: 77063; 77067

== ENCOUNTER 2022-10-31 19:38 | Emergency (ER) | payer OTHER, SELFPAY ==
[2022-10-31 19:48] VITALS: BP 149/93; PULSE 101; TEMP 36.8; O2SAT 97; BMI 31.5
--- NOTE | 2022-10-31 19:50 | XRR_ITS ---
PROCEDURE INFORMATION: Exam: XR Chest Exam date and time: 10/31/2022 7:55 PM Age: 57 years old Clinical indication: Shortness of breath; Additional info: PRETTY Head TECHNIQUE: Imaging protocol: Radiologic exam of the chest. Views: 1 view. COMPARISON: CR XR chest 2V* [id number] 06/27/2021 8:02 AM FINDINGS: Lungs: Lungs are clear bilaterally. Pleural spaces: No pleural effusion. No pneumothorax. Heart/Mediastinum: Stable mild enlargement of the cardiac silhouette. Mediastinal contours are unremarkable. Vasculature: Stable vascular calcifications in the aorta. Bones/joints: Unremarkable for age. XR/XR chest 1V portable [id number] IMPRESSION: 1. No acute cardiopulmonary process. 2. Incidental/nonacute findings are listed in the report.
--- NOTE | 2022-10-31 19:59 | ECG_ITS ---
[facility] Test Date: 2022-10-31 Pat Name: Naheed Acosta Department: Room: Gender: Female Education Finance Processor: : 1965 Requested By: Rema Canales Order Number: [id number] Griselda MD: Leon Eller M.D. Measurements Intervals [place] Rate: 87 P: 48 IA: 151 QRS: 32 QRSD: 81 T: 50 QT: 345 QTc: 416 Interpretive Statements SINUS RHYTHM MINIMAL ST DEPRESSION [0.025+ mV ST DEPRESSION] Compared to ECG 01/01/2021 01:47:09 ST (T wave) deviation now present Electronically Signed On 11-02-2022 1:30:03 CDT by Leon Eller M.D. [email or web address] [email or web address]/store/[id number]
[2022-10-31 20:14] VITALS: BP 155/88; PULSE 85; RESP 17; O2SAT 96
[2022-10-31 20:16] LABS: Basophils # 0.1 10^3/uL (0.0-0.1); Basophils % 0.9 %; Eosinophils # 0.1 10^3/uL (0.0-0.8); Eosinophils % 0.7 %; Hematocrit 44.9 % (37.0-47.0); Hemoglobin 15.4 g/dL (11.5-15.3); Lymphocytes # 2.1 10^3/uL (0.8-4.8); Lymphocytes % 29.8 %; Mean Corpuscular HGB Conc 34.3 g/dL (30.0-36.0); Mean Corpuscular Volume 93.3 fl (81-99); Mean Platelet Volume 11.7 fL (7.4-10.4); Monocytes # 0.7 10^3/uL (0.2-0.9); Monocytes % 9.3 %; Neutrophils # 4.15 10^3/uL (1.8-7.7); Nucleated Red Blood Cells % 0 %; Platelet Count 229 10^3/cmm (130-400); Red Blood Count 4.81 10^6/uL (4.1-5.3); Red Cell Distribution Width 11.9 % (12.1-15.1)
[2022-10-31 20:36] LABS: Troponin(5th) Baseline 9 ng/L (0-10)
[2022-10-31 20:38] LABS: Alanine Aminotransferase 23 U/L (0-33); Albumin Level 4.3 g/dL (3.5-5.2); Alkaline Phosphatase 69 U/L (35-105); Anion Gap 14.6 (5-19); Aspartate Amino Transferase 21 U/L (0-32); Blood Urea Nitrogen 11 mg/dL (6-20); Calcium 10.1 mg/dL (8.5-10.5); Carbon Dioxide 26 mmol/L (22-29); Chloride 102 mmol/L (98-107); Globulin 2.6 g/dL (1.3-4.6); Glomerular Filtration Rate 86.6 mL/min (90-130); Glucose 106 mg/dL (65-115); Lipase 28 U/L (13-60); Osmolality Calculated 288 mOsm/kg (285-295); Potassium 3.6 mmol/L (3.5-5.1); Sodium 139 mmol/L (136-145); Total Bilirubin 0.3 mg/dL (0.15-1.2); Total Protein 6.9 g/dL (6.6-8.7)
[2022-10-31 20:45] VITALS: BP 137/81; PULSE 75; RESP 22; O2SAT 94
--- NOTE | 2022-10-31 21:19 | ED_ITS ---
HPI - Chest Pain General: Chief Complaint: Chest Pain Stated Complaint: cp Time Seen by Provider: 10/31/22 20:07 Source: patient Mode of arrival: ambulatory Limitations: no limitations History of Present Illness: 57-year-old female states that she been having some chest pain shortness of breath palpitations over the last 2 hours. She has had a history of nonsustained ventricular tachycardia she states that she had seen her legal internship need to stop her metoprolol and increased her diltiazem she states she had a recent heart monitor. Was normal. She states she feels improved currently does feel slightly anxious. Heart rate currently in the room is in the 70s. No cough no fever Associated symptoms: Reports palpitations; Deny abdominal pain, dyspnea, fever(s), nausea or vomiting Review of Systems Const: Denies: fever(s) or chills Eyes: Denies: eye discomfort Card: Reports: chest pain and palpitations Resp: Denies: dyspnea GI: Denies: abdominal pain, nausea, vomiting or diarrhea Musc: Denies: neck pain or back pain Skin/Breast: Denies: rash Neuro: Denies: headache(s) PFSH ED PFSH: Medical History NSVT (nonsustained ventricular tachycardia) Post-menopausal Surgical History H/O breast augmentation H/O tubal ligation History of right-sided carotid endarterectomy Social History Smoking and tobacco status: former smoker Alcohol intake: never Female Reproductive History: Spontaneous abortions: No Physical Exam Const: COMMON NORMALS: no acute distress, patient oriented x3 and healthy appearing HENMT: COMMON NORMALS: normocephalic and atraumatic HEAD & SCALP: normocephalic and atraumatic Eye: COMMON NORMALS: conjunctivae normal CONJUNCTIVA: Yes conjunctivae normal Neck/C-Spine: COMMON NORMALS: supple Chest: COMMONS NORMALS: normal inspection of the chest and normal palpation of entire chest wall Resp: COMMON NORMALS: normal respiratory effort, No retractions, No use of acc essory muscles and clear to auscultation bilaterally AUSCULTATION: clear to auscultation bilaterally Cardio: COMMON NORMALS: regular rate, regular rhythm and No murmurs present (Cardio) RATE: regular rate RHYTHM: regular rhythm GI: INSPECTION: Yes normal to inspection Extremity: COMMON NORMALS: normal to inspection and full ROM Neuro: COMMON NORMALS: patient oriented x3, moves all extremities and no focal motor deficits Psych: COMMON NORMALS: mental status grossly normal, Normal thought process present and cooperative THOUGHT PROCESS: Normal thought process present Skin: COMMON NORMALS: no rashes or lesions noted and no wounds GENERAL SKIN EXAM: no rashes or lesions noted Course Vital Signs: Vital signs: Vital Signs Temperature 98.2 F 10/31/22 19:48 Pulse Rate 84 10/31/22 22:47 Respiratory Rate 14 10/31/22 22:47 Blood Pressure 116/63 10/31/22 22:47 Pulse Oximetry 97 10/31/22 22:47 Oxygen Delivery Me thod Room Air 10/31/22 19:48 MDM - Chest Pain Medical Decision Making Patient presents here with intermittent palpitations along with some chest pain she had a recent heart monitor show anything on this heart monitor she just had her meds adjusted it stopped her metoprolol and increase her calcium channel mario. States she felt her heart was racing today here she been on the monitor for 3 hours and her heart rate has been in the 60s and 70s D-dimer t roponins are normal informed her she needs to follow-up with her legal internship who she is seeing this week return if worsening she understands agrees to plan. Medical Records I reviewed the patient's medical records. Lab Data I reviewed the patient's lab results. 10/31/22 19:57 10/31/22 19:57 Radiology Impressions Chest X-Ray 10/31/22 19:50 IMPRESSION: 1. No acute cardiopulmonary process. 2. Incidental/nonacute findings are listed in the report. Laboratory Results WBC 7.0 10^3/uL (4.0-10.0) 10/31/22 19:57 RBC 4.81 10^6/uL (4.1-5.3) 10/31/22 19:57 Hgb 15.4 g/dL (11.5-15.3) H 10/31/22 19:57 Hct 44.9 % (37.0-47.0) 10/31/22 19:57 MCV 93.3 fl (81-99) 04/19/23 19:57 MCH 32.0 pg (28.0-34.0) 10/31/22 19:57 MCHC 34.3 g/dL (30.0-36.0) 10/31/22 19:57 RDW 11.9 % (12.1-15.1) L 10/31/22 19:57 Plt Count 229 10^3/cmm (130-400) 10/31/22 19:57 MPV 11.7 fL (7.4-10.4) H 10/31/22 19:57 Neut % (Auto) 59.0 % 10/31/22 19:57 Lymph % (Auto) 29.8 % 10/31/22 19:57 [place] % (Auto) 9.3 % 10/31/22 19:57 Eos % (Auto) 0.7 % 10/31/22 19:57 Baso % (Auto) 0.9 % 10/31/22 19:57 Neut # (Auto) 4.15 10^3/uL (1.8-7.7) 10/31/22 19:57 Lymph # (Auto) 2.1 10^3/uL (0.8-4.8) 10/31/22 19:57 [place] # (Auto) 0.7 10^3/uL (0.2-0.9) 10/31/22 19:57 Eos # (Auto) 0.1 10^3/uL (0.0-0.8) 10/31/22 19:57 Baso # (Auto) 0.1 10^3/uL (0.0-0.1) 10/31/22 19:57 Nucleated RBC % (auto) 0 % 10/31/22 19:57 Nucleated RBCs # 0.0 /100WBC 10/31/22 19:57 D-Dimer <= 0.27 ug/mIFEU (0-0.59) 10/31/22 19:57 Sodium 139 mmol/L (136-145) 10/31/22 19:57 Potassium 3.6 mmol/L (3.5-5.1) 10/31/22 19:57 Chloride 102 mmol/L (98-107) 10/31/22 19:57 Carbon Dioxide 26 mmol/L (22-29) 10/31/22 19:57 Anion Gap 14.6 (5-19) 10/31/22 19:57 BUN 11 mg/dL (6-20) 10/31/22 19:57 Creatinine 0.7 mg/dL (0.5-0.9) 10/31/22 19:57 GFR Calculation 86.6 mL/min (90-130) L 10/31/22 19:57 Glucose 106 mg/dL (65-115) 10/31/22 19:57 Calculated Osmolality 288 mOsm/kg (285-295) 10/31/22 19:57 Calcium 10.1 mg/dL (8.5-10.5) 10/31/22 19:57 Total Bilirubin 0.3 mg/dL (0.15-1.2) 10/31/22 19:57 AST 21 U/L (0-32) 10/31/22 19:57 ALT 23 U/L (0-33) 10/31/22 19:57 Alkaline Phosphatase 69 U/L (35-105) 10/31/22 19:57 Troponin T Baseline 9 ng/L (0-10) 10/31/22 19:57 Troponin T 120 Minute 10.24 ng/L (0-10) H 10/31/22 21:50 Delta Troponin T 1.24 ABS# (0-10) 10/31/22 21:50 Total Protein 6.9 g/dL (6.6-8.7) 10/31/22 19:57 Albumin 4.3 g/dL (3.5-5.2) 10/31/22 19:57 Globulin 2.6 g/dL (1.3-4.6) 10/31/22 19:57 Lipase 28 U/L (13-60) 10/31/22 19:57 EKG Data EKG 1: I personally reviewed and interpreted this EKG as follows: EKG interpretation date: 10/31/22 EKG interpretation time: 19:59 Interpretation: nsr hr [address] elevation qrs 81 qtc 389 Discharge Plan Discharge Patient Disposition: Home Clinical Impression: Chest pain, Intermittent palpitations Condition: Stable Prescriptions: No Action potassium gluconate 595 mg (99 mg) tablet 595 mg PO DAILY magnesium oxide 400 mg magnesium tablet 400 mg PO DAILY cyclobenzaprine 10 mg tablet 10 mg PO TID PRN (Reason: muscle spasm) Qty: 60 11RF diltiazem HCl [Cardizem] 60 mg tablet 60 mg PO BID Qty: 90 0RF Calcium with Vitamin D as directed ondansetron 4 mg tablet,disintegrating 4 mg PO Q8H PRN (Reason: nausea and vomiting) Qty: 30 0RF amitriptyline 10 mg tablet 10 mg PO .at bedtime 90 Days Qty: 90 3RF Ozempic 0.25 mg or 0.5 mg(2 mg/1.5 mL) pen injector 0.25 mg SUBCUT .WEEKLY 28 Days Qty: 1.5 0RF Aspir-81 81 mg Tablet,Delayed Release (Dr/Ec) 81 mg PO DAILY@1999 Discharge Orders: Discharge ED (Routine); Ordered 10/31/22 Ordered By: Rema Canales Referrals: Parveen Hamilton M.D [Physician] - 1-3 days Angelita Ayala MD [Primary Care Provider] - Discharge Diet: Advance as tolerated Discharge Activity: Resume usual activity Patient Instructions: Heart Palpitations (ED) Coding Level of Care Code ED Electric Sealing Machine Operator for Deyvi Rodas
--- NOTE | 2022-10-31 21:50 | ECG_ITS ---
[facility] Test Date: 2022-10-31 Pat Name: Naheed Acosta Department: Room: Gender: Female An/Syq 13 Nav/C2 Operator: : 1965 Requested By: Rema Canales Order Number: [id number] Griselda MD: Leon Eller M.D. Measurements Intervals [place] Rate: 101 P: 134 WI: 114 QRS: 95 QRSD: 89 T: 127 QT: 348 QTc: 453 Interpretive Statements SINUS TACHYCARDIA WITH SHORT WI INTERVAL WITH OCCASIONAL ECTOPIC PREMATURE COMPLEXES POSSIBLE LEFT ATRIAL ENLARGEMENT [-0.1mV P-WAVE IN V1/V2] BORDERLINE RIGHT AXIS DEVIATION [QRS AXIS > 90] MINIMAL ST DEPRESSION [0.025+ mV ST DEPRESSION] ABNORMAL RHYTHM ECG INTERPRETATION BASED ON A DEFAULT AGE OF 40 YEARS Compared to ECG 01/01/2021 01:47:09 Short WI interval now present ST (T wave) deviation now present Sinus rhythm no longer present Electronically Signed On 11-02-2022 22:10:15 CDT by Leon Eller M.D. [id number] f
[2022-10-31 21:56] LABS: D Dimer <= 0.27 ug/mIFEU (0-0.59)
[2022-10-31 21:58] VITALS: BP 136/84; PULSE 85; RESP 20; O2SAT 94
[2022-10-31] MEDS: diphenhydrAMINE 50 mg/mL SDV 1mL 25 MG IVP (21:59)
[2022-10-31] MEDS: metoclopramide 5 mg/mL SDV 2 mL IVP (22:01)
[2022-10-31 22:15] LABS: Troponin 5 2HR 10.24 ng/L (0-10)
[2022-10-31 22:20] LABS: Troponin 5 2HR Delta 1.24 ABS# (0-10)
[2022-10-31 22:47] VITALS: BP 116/63; PULSE 84; RESP 14; O2SAT 97
== END 2022-10-31 22:48 | disposition home or self-care (01) ==
PROVIDERS: Emergency Provider Emergency Medicine; PCP Family Medicine
DX: R07.9 Chest pain, unspecified (principal); R00.2 Palpitations; Z79.82 Long term (current) use of aspirin; Z87.891 Personal history of nicotine dependence
CPT/HCPCS: 36415; 71045; 80053; 83690; 84484; 85025; 85378; 93005; 96374; 96375; 99285; J1200; J2765

== ENCOUNTER 2023-11-27 07:41 | Outpatient (CLI) | payer OTHER, SELFPAY ==
--- NOTE | 2023-11-27 08:00 | MM_ITS ---
WS: [id number] BILATERAL SCREENING DIGITAL BREAST MAMMOGRAPHY WITH JARROD DISPLACEMENT VIEWS. CAD PERFORMED. HISTORY: Z12.39 - Encounter for other screening for malignant neop... COMPARISON: 04/06/2022, 04/10/2021 Bilateral craniocaudal and mediolateral oblique views are performed with tomosynthesis and SM. Jarrod displacement views in CC and MLO projection also performed. Breasts composition: There are scattered areas of fibroglandular density. Benign calcifications in each breast. No suspicious masses or distortion. Prepectoral implants are in tact. MM/[place] [id number] IMPRESSION: BI-RADS: 2-Benign FOLLOW-UP: 1 Year Follow-up
== END 2023-11-27 07:42 | disposition home or self-care (01) ==
LOC: RAD 07:41
PROVIDERS: Visit Provider Family Medicine
DX: Z12.31 Encounter for screening mammogram for malignant neoplasm of breast (principal)
CPT/HCPCS: 77063; 77067

== ENCOUNTER 2024-11-27 07:54 | Outpatient (CLI) | payer OTHER, SELFPAY ==
--- NOTE | 2024-11-27 08:00 | MM_ITS ---
WS: [id number] BILATERAL SCREENING DIGITAL BREAST MAMMOGRAPHY WITH JARROD DISPLACEMENT VIEWS. CAD PERFORMED. HISTORY: Z12.39 - Encounter for other screening for malignant neop... COMPARISON: 11/27/2023, 04/06/2022, 12/06/2016 Bilateral craniocaudal and mediolateral oblique views are performed with tomosynthesis and SM. Jarrod displacement views in CC and MLO projection also performed. Breasts composition: There are scattered areas of fibroglandular density. Scattered benign calcifications. No suspicious grouping of calcifications. Implants are prepectoral. Implants are intact with no collapse. MM/MM scr BI tomosynthesis [id number] IMPRESSION: BI-RADS: 2 - Benign. FOLLOW-UP: 1 Year Follow-up
== END 2024-11-27 07:55 | disposition home or self-care (01) ==
LOC: RAD 07:55
PROVIDERS: PCP Family Medicine; Visit Provider Family Medicine
DX: Z12.31 Encounter for screening mammogram for malignant neoplasm of breast (principal); R92.323 Mammographic fibroglandular density, bilateral breasts; R92.1 Mammographic calcification found on diagnostic imaging of breast; Z98.82 Breast implant status
CPT/HCPCS: 77063; 77067

== ENCOUNTER 2024-12-24 09:01 | Outpatient (CLI) | payer SELFPAY ==
[2024-12-24 09:51] LABS: HF Add Manual Diff No; Monocytes % 7.3 %; Nucleated Red Blood Cells % 0 %; Red Cell Distribution Width 12.3 % (12.1-15.1)
[2024-12-24 10:21] LABS: Basophils % 0.7 %; Eosinophils % 0.7 %; Hematocrit 43.8 % (36-47); Lymphocytes # 1.6 10^3/uL (0.8-4.8); Lymphocytes % 26.6 %; Mean Corpuscular HGB Conc 33.3 g/dL (30-55); Mean Corpuscular Hemoglobin 32.4 pg (27-33); Mean Corpuscular Volume 97.1 fl (85-98); Mean Platelet Volume 11.9 fL (7.4-10.4); Monocytes # 0.4 10^3/uL (0.2-0.9); Neutrophils % 64.4 %; Platelet Count 221 10^3/cmm (157-399); Red Blood Count 4.51 10^6/uL (3.85-5.65); White Blood Count 6.05 10^3/uL (3.29-11.43)
[2024-12-24 10:32] LABS: Estmated Average Glucose 97
[2024-12-24 11:02] LABS: Alanine Aminotransferase 11 U/L (0-33); Albumin Level 4.1 g/dL (3.5-5.2); Alkaline Phosphatase 43 U/L (35-105); Anion Gap 17.5 (5-19); Aspartate Amino Transferase 13 U/L (0-32); Blood Urea Nitrogen 14 mg/dL (6-20); Calcium 9.1 mg/dL (8.5-10.5); Carbon Dioxide 23 mmol/L (22-29); Chloride 105 mmol/L (98-107); Chol HDL Ratio 2.76 mg/dL (0.0-4.40); Cholesterol 188 mg/dL (0-200); Globulin 2.4 g/dL (1.3-4.6); Glomerular Filtration Rate 102.7 mL/min (90-130); Glucose 96 mg/dL (65-115); HDL Cholesterol 68 mg/dL (60-100); LDL Cholesterol Calculated 101 mg/dL (50-129); LDL HDL Ratio 1.49 RATIO (0.00-3.22); Osmolality Calculated 292 mOsm/kg (285-295); Potassium 4.5 mmol/L (3.5-5.1); Sodium 141 mmol/L (136-145); Thyroid Stimulating Hormone 0.92 uIU/mL (0.27-4.20); Total Bilirubin 0.3 mg/dL (0.15-1.2); Total Protein 6.5 g/dL (6.6-8.7); Triglycerides 97 mg/dL (0-150)
== END 2024-12-24 09:02 | disposition home or self-care (01) ==
LOC: LAB 09:02
PROVIDERS: PCP Family Medicine; Visit Provider Dermatology
DX: Z01.89 Encounter for other specified special examinations (principal)